=== PATIENT | female | born 1960 | race Caucasian/White ===

== ENCOUNTER 2017-04-23 18:27 | Inpatient (IN) ==
--- OUTSIDE RECORDS SUMMARY | 2017-04-23 18:37 | External Medical Summary | Referral Summary ---
:1960 Author Organization [facility] Address [address] [place] [address] [place] [address] Care Team Providers Name Role Phone Ashley Clinton Primary Care Physician Encounter VC Date(s): 08/11/16 - 08/11/16 [facility] [address] [place] [address] [place] [phone]- [place] Discharge Diagnosis: Tendinitis, de Quervain's Discharge Diagnosis: Rheumatoid arthritis, seronegative, multiple sites Discharge Diagnosis: Medication management Discharge Disposition: 01-Home or Self Care Attending Physician: Kezia Landin MD Admitting Physician: Kezia Landin MD Vital Signs Most recent to oldest [Reference Range]: 1 Peripheral Pulse Rate [60-100 bpm] 100 bpm (08/11/16 10:24 AM) Blood Pressure [90-140/60-90 mmHg] 89/64 mmHg *LOW* (08/11/16 10:24 AM) Problem List Condition Effective Dates Status Health Status Informant Basal cell carcinoma(Confirmed) Active Closed fracture of olecranon process Active of ulna (disorder)(Confirmed) Closed fracture of tibia Active (disorder)(Confirmed) Compression fracture of thoracic Active vertebra(Confirmed) Disorder of bone(Confirmed) Active process of ulna, closed(Confirmed) Active 2002(Confirmed) Active Osteochondropathy Active (disorder)(Confirmed) Osteopenia(Confirmed) Active Allergies, Adverse Reactions, Alerts Substance Reaction Severity Status sulfamethoxazole Unknown Active trimethoprim Unknown Active Medications Calcium 600+D Oral, 0 Refill(s) Start Date: 05/15/16 Status: Orderedhydroxychloroquine 200 mg oral tablet See Instructions, 2 tabs Mon to fri and 1 tab Sat and Sun, # 60 tabs, 3 Refill(s ), Pharmacy: [facility] #[id number], 2 tabs Mon to fri and 1 tab Sat and Sun Start Date: 08/11/16 Status: OrderedMiscellaneous DME DME Item Right thumb Spica splint/ Dx Tendonitis M65.4, See Instructions, # 1 Each, 0 Refill(s), Supply Start Date: 08/11/16 Status: Ordered Results No data available for this section Immunizations Given and Recorded Vaccine Date Status Refusal Reason tetanus/diphth/pertuss (Tdap) adult/adol 07/14/05 Recorded influenza virus vaccine, inactivated1 05/18/14 Recorded influenza virus vaccine, live 04/21/13 Given 1Result Comment: [05/18/2014] see scanned doc Procedures Procedure Date Related Diagnosis Body Site Carpal tunnel release1 1right 2016 Social History Social History Type Response Smoking Status Never smoker Assessment and Plan Extracted from: Title: Office Visit Note Author: Kezia Landin MD Date: 08/11/16 Assessment/Plan 1.Rheumatoid arthritis, seronegative, multiple sites She appears overall to be improved. We will continue the hydroxychloroquine. 2.Medication management She did have laboratory done a couple months ago with stable. She has seen her eye doctor. No toxicities noted. 3.Tendinitis, de Quervain's She was given a prescription forthumb splint. also recommended she try taking naproxen daily for week. Follow-up in 4 months or sooner if needed.
--- OUTSIDE RECORDS SUMMARY | 2017-04-23 18:37 | External Medical Summary | Referral Summary ---
:1960 Author Organization [facility] Address [address] [place] [address] Care Team Providers Name Role Phone Ashley Clinton Primary Care Physician Encounter VC Date(s): 05/15/16 - 05/15/16 [facility] [address] [place] [address]- [place] Discharge Diagnosis: Rheumatoid arthritis, seronegative, multiple sites Discharge Diagnosis: Medication management Discharge Disposition: 01-Home or Self Care Attending Physician: Kezia Landin MD Admitting Physician: Kezia Landin MD Referring Physician: Ashley Clinton DO Vital Signs Most recent to oldest [Reference Range]: 1 Peripheral Pulse Rate [60-100 bpm] 82 bpm (05/15/16 1:18 PM) Blood Pressure [90-140/60-90 mmHg] 102/74 mmHg (05/15/16 1:18 PM) Problem List Condition Effective Dates Status Health [...] tab Sat and Sun, # 60 tabs, 2 Refill(s ), Pharmacy: [facility] #[id number], 2 tabs Mon to fri and 1 tab Sat and Sun Start Date: 05/15/16 Status: Ordered Results No data available for this section Immunizations Vaccine Date Refusal Reason tetanus/diphth/pertuss (Tdap) adult/adol 07/14/05 influenza virus vaccine, inactivated1 05/18/14 influenza virus vaccine, live 04/21/13 1Result Comment: [05/18/2014] see scanned doc Procedures Procedure Date Related Diagnosis Body Site Carpal tunnel release1 1right 2016 Social History Social History Type Response Smoking Status Never smoker Assessment and Plan Extracted from: Title: Ambulatory Patient Education Author: Kezia Landin MD Date: 05/15/16 Labs Anticyclic-Citrullinated Peptide Antibody Test WHY AM I HAVING THIS TEST? The anticyclic-citrullinated peptide antibody test may be done to: Help your health care provider diagnose rheumatoid arthritis. Determine the severity and progression of your rheumatoid arthritis. This test may be done if you have unexplained joint inflammation and have previously tested negative for rheumatoid factor. It may also be done if you have been diagnosed with undifferentiated arthritis and your health care provider suspects rheumatoid arthritis. WHAT KIND OF SAMPLE IS TAKEN? A blood sample is required for this test. It is usually collected by inserting a needle into a vein. HOW DO I PREPARE FOR THE TEST? There is no preparation required for this test. HOW ARE THE TEST RESULTS REPORTED? Your test results will be reported as either positive or negative. It is your responsibility to obtain your test results. Ask the lab or department performing the test when and how you will get your results. WHAT DO THE RESULTS MEAN? A positive blood test may mean that you have rheumatoid arthritis. A negative blood test means that it is unlikely that you have rheumatoid arthritis. Talk with your health care provider to discuss your results, treatment options , and if necessary, the need for more tests. Talk with your health care provider if you have any questions about your results. This information is not intended to replace advice given to you by your health care provider. Make sure you discuss any questions you have with your health care provider. Document Released: 08/21/2005 Document Revised: 08/20/2015 Document Reviewed: 12/23/2014 Exit[employer] Patient Information 2016 [employer]. No follow up information was provided. Extracted from: Title: Office Visit Note Author: Kezia Landin MD Date: 05/15/16 Assessment/Plan 1.Rheumatoid arthritis, seronegative, multiple sites She has evidence of synovitis on examination and has particular osteopenia on x-ray. I discussed that presentation is compatible of rheumato id arthritis. Her rheumatoid factor was negative on her lab work. I will check a CCP antibody and also check her inflammatory markers and she was given a lasted to have this done. I will start her on hydroxychloroquine. I reviewed the potential risks which may occur with this medication including retinal toxicityand that she will need to see eye doctor on annual basis, muscle toxicity, cytop enias etc. She was given a handouton this medication from the [employer]. 2.Medication management I will check baseline blood counts. Follow-up in 2-3 months.
[2017-04-23] MEDS ORDERED: NS 1,000 ML IV ONE (18:43)
--- NOTE | 2017-04-23 18:48 | Emergency Department Report ---
Cardiac General HPI - General Stated Complaint: racing hb Time Seen by Provider: 04/23/17 18:28 Source: patient, family Mode of arrival: ambulatory Limitations: no limitations - History of Present Illness HPI narrative: Patient presents with symptoms of rapid pounding heartbeat that she's had since 2 PM. Patient denies any shortness of breath or chest pain, but states that she has had these symptoms on and off approximately every few months for several years now. With today's episode, this is lasted longer than usual, and patient also has mild paresthesia to the fingertips which is unusual. Currently the episode is improved significantly, patient has no dizziness or lightheadedness currently, does have a "slight" tingly feeling in the fingertips of the right hand only. Patient denies any recreational drug use, supplement use, naturopathic medications, and over the counters. Patient is taking one prescription medication as listed for her rheumatoid arthritis. Patient denies recreational drug use of any kind, and has an occasional glass of wine, less than one per week - Related Data Home Medications Medication Instructions Recorded Confirmed Calcium Carbonate 600 mg PO DAILY 04/23/17 04/23/17 Hydroxychloroquine Sulfate 200 mg PO BID 04/23/17 04/23/17 Allergies Allergy/AdvReac Type Severity Reaction Status Date / Time sulfamethoxazole Allergy Unknown hives Verified 04/23/17 19:00 trimethoprim Allergy Unknown hives Verified 04/23/17 19:00 Review of Systems All systems: reviewed and negative except as stated PFSH Osteoporosis Pneumonia Rheumatoid arthritis Physical Exam - Limitations Limitations: no limitations - General General appearance: alert, in no apparent distress - Normal Exams: Head:: Normocephalic without trauma Eyes:: Pupils are PERRLA w/ EOMI, No scleral icterus, irritation, or foreign bodies noted ENMT:: No facial trauma, nasal exudates, pharyngeal erythema, or exudates are noted Neck:: Full range of motion, without adenopathy, JVD, bruits or thyromegaly Chest/Respirations:: Clear all king, with good airflow, and symmetry bilaterally Abdomen:: Bowel sounds positive, soft, non-tender, non-distended, no hepatosplenomegaly, masses or bruits noted Lymphatic:: No lymphadenopathy, or lymphedema noted Musculoskeletal:: No tenderness, or deformity noted, good range of motion, all extremities Integumentary:: No rashes, hives, or bruising noted, hair and nails, without abnormality Neurological:: Patient is alert, and oriented, cranial nerves, motor/sensory/ cerebellar, exams w/o gross deficits, to observation Psychiatric:: Patient exhibits, appropriate attention, emotion and affect - Cardiovascular Cardiovascular exam: Present: normal rhythm, tachycardia (sinus tachycardia), normal heart sounds. Absent: regular rate, bradycardia, systolic murmur, diastolic murmur, rubs, gallop, clicks Course Vital Signs Temperature 97.7 F 04/23/17 18:32 Pulse Rate 125 H 04/23/17 18:32 Respiratory Rate 16 04/23/17 18:32 Blood Pressure 119/67 04/23/17 18:32 Pulse Oximetry 100 04/23/17 18:32 Temperature 97.7 F 04/23/17 18:32 Pulse Rate 125 H 04/23/17 18:32 Respiratory Rate 16 04/23/17 18:32 Blood Pressure 119/67 04/23/17 18:32 Pulse Oximetry 100 04/23/17 18:32 Cardiac General - MDM Narrative Medical decision making narrative: EKG shows sinus tachycardia without ischemia, patient does have one PVC noted. No STEMI Patient given 1 L normal saline IV fluid bolus - CBC - n CMP - n Troponin - elevated 0.447 Patient has 1 inch Nitropaste placed on the chest, Dr. Vivar paged at 7:25 PM Case discussed with Dr. Vivar - will give Lovenox 1 mg/kg in the ER, continue Nitropaste in ICU, and will admit to ICU for non-STEMI. UA - TSH - - Lab Data Result diagrams: 04/23/17 18:50 04/23/17 18:50 Lab Results 04/23/17 04/23/17 Range/Units 18:50 18:50 WBC 6.9 (4.5-11.0) T/MM3 RBC 4.98 (4.00-5.20) M/MM3 Hgb 14.9 (12-16) GM/DL Hct 43.3 (36-46) % MCV 86.9 (80-100) UM3 MCH 29.9 (26-34) UUG MCHC 34.4 (31-37) GM/DL RDW Std Deviation 38.5 (36.9-50.2) FL Plt Count 220 (130-400) T/MM3 MPV 9.4 (9.4-12.4) UM3 Immature Gran % (Auto) 0.1 (0.0-0.5) % Neut % (Auto) 64.3 (33-66) % Lymph % (Auto) 24.2 (23-45) % Cannon % (Auto) 8.5 (0-9.0) % Eos % (Auto) 2.3 (0-4) % Baso % (Auto) 0.6 (0-2) % Neut # 4.4 (1.8-7.7) T/MM3 Lymph # 1.7 (1-4.8) T/MM3 Cannon # 0.6 (0-0.8) T/MM3 Eos # 0.2 (0-0.5) T/MM3 Baso # 0.0 (0-0.2) T/MM3 Abs Immat Gran (auto) 0.01 (0.00-0.03) T/MM3 Turbidity < 20 (0-20) Sodium 142 (134-144) MEQ/L Potassium 3.5 L (3.6-5) MEQ/L Chloride 105 (98-107) MEQ/L Carbon Dioxide 26 (22-30) MEQ/L Anion Gap 11 (5-15) MEQ/L BUN 14.0 (7-17) MG/DL Creatinine 0.9 (0.7-1.2) MG/DL GFR Calculation 65 BUN/Creatinine Ratio 16 (6-26) RATIO Glucose 101 (65-110) MG/DL Calculated Osmolality 274 (261-280) MOSM/KG Calcium 10.0 (8.4-10.2) MG/DL Total Bilirubin 0.60 (0.20-1.30) MG/DL Conjugated Bilirubin 0.00 (0.00-0.30) MG/DL Unconjugated Bilirubin 0.20 (0.00-11.10) MG/DL Icterus Index < 2 (0-7) AST 26 (14-36) U/L ALT 34 (9-52) U/L Alkaline Phosphatase 93 (38-126) U/L Troponin I 0.447 H (0-0.12) ng/ml Total Protein 7.7 (6.3-8.2) G/DL Albumin 4.8 (3.5-5.0) G/DL Globulin 2.9 (2.4-3.6) G/DL Albumin/Globulin Ratio 1.7 (1.1-2.2) RATIO Specimen Hemolysis < 15 (0-25) Critical Care Time Total Critical Care Time: 35 Attestation: Patient required aggressive and advanced diagnostics and intervention for acute coronary syndrome, non-STEMI Disposition Clinical Impression: Non-STEMI (non-ST elevated myocardial infarction) Disposition: 02 To [facility] Condition: Improved Prescriptions: No Action Calcium Carbonate 600 mg PO DAILY Hydroxychloroquine Sulfate 200 mg PO BID Referrals: Ashley Clinton DO [Family Provider] - - Seen By: physician
[2017-04-23] MEDS ORDERED: NITROGLYCERIN 2% OINTMENT 1gm PACKET TP ONE (19:26)
[2017-04-23] MEDS ORDERED: ENOXAPARIN 60 MG/0.6 ML INJECTION SQ ONE (19:30)
[2017-04-23 21:02] VITALS: BMI 23.2
[2017-04-23] MEDS: HYDROXYCHLOROQUINE 200 MG TABLET PO SCH (21:55)
[2017-04-23] MEDS ORDERED: NITROGLYCERIN 0.4 MG SUBLINGUAL TABLET SL PRN (22:39)
--- NOTE | 2017-04-23 22:56 | Cardiology History & Physical ---
History of Present Illness Chief complaint: Palpitations first seen by Dr. Vivar on 04/24/2017 HPI: This is a 56 year old patient with a history of palpitations and rheumatoid arthritis. This afternoon about 2:00 she was at the bank, under no stress, and she started to feel a rapid heart beat. She went home and laid down and her HR decreased. when she got up again her HR increased. She has had palpitations in the past occurring every 6 months to 1 yr lasting for 1 -2 minutes, 10 minutes at the most for the last 10 yrs or so. Therefore she expected her HR to return to normal. She denies chest pain/pressure/tightness. She has been eating and drinking ok. She does drink one coffee and one diet coke a day. No extra caffeinated drinks or cold meds. No N/V or abdominal pain, No sickness or fever or chills. When the palpations did not go away, Her brought her into [facility] ER about 6:30 pm. She had some SOB, dizziness, and epigastric discomfort like reflux and her fingers on both hands started to tingle. She does not smoke, use drugs, and may drink a glass of wine once a week. By the time she got to the ER her HR decreased and her symptoms had improved significantly. In ER ECG: ST, HR 122, 1 PVC. Trop 0.44. CBC and CMP unremarkable. TSH wnl. She received lovenox 1mg/kg. Dr. Vivar was contacted and agreed with admit. Review of Systems - Constitutional Constitutional: Absent: chills, fever(s), malaise, weight gain, weight loss - EETXT Eyes: Absent: blurry vision Mouth/Throat: Absent: sore throat - Cardiovascular Cardiovascular: Present: palpitations. Absent: chest pain, dyspnea on exertion , orthopnea, edema Rhythm: Present: regular rhythm Vascular: Absent: pedal edema - Respiratory Respiratory: Present: dyspnea. Absent: cough - Gastrointestinal Gastrointestinal: Present: other (had some epigastric pain like reflux. ). Absent: abdominal pain, constipation, diarrhea, nausea, vomiting - Genitourinary Genitourinary: Absent: flank pain - Musculoskeletal Musculoskeletal: Present: other (no joint pain since she has been taking the arthritis medicine. ) - Integumentary/Breasts Integumentary: Absent: rash - Neurological Neurological: Present: dizziness, paresthesias (of fingers christiano ) - Psychiatric Psychiatric: Absent: anxiety, depression, panic attacks - Endocrine Endocrine: Absent: cold intolerance - Hematologic/Lymphatic Hematologic/Lymphatic: Absent: easy bruising [facility] Patient Stated Medical History Cardiac Arrhythmia Yes Other Musculoskeletal Yes: rheumatoid arthritis Surgical History: carpal tunnel release. Family History: Father in [place] A/W at 91 yrs. She had kidney cancer in past and has one kidney. 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 Current residence: Independent Living Social history: . Lives at home in [place], [place] and does her own chores. Walks almost daily. Medications Home Medications Medication Instructions Recorded Confirmed Type Calcium Carbonate 600 mg PO DAILY 04/23/17 04/23/17 History Hydroxychloroquine Sulfate 200 mg PO BID 04/23/17 04/23/17 History Allergies Allergy/AdvReac Type Severity Reaction Status Date / Time sulfamethoxazole Allergy Unknown hives Verified 04/23/17 19:00 trimethoprim Allergy Unknown hives Verified 04/23/17 19:00 Exam Vital signs: Temperature 98.2 F 04/23/17 20:00 Pulse Rate 104 H 04/23/17 20:00 Respiratory Rate 20 04/23/17 20:00 Blood Pressure 124/70 04/23/17 20:00 Pulse Oximetry 100 04/23/17 20:00 - Constitutional no acute distress, well nourished, well developed, cooperative Comments: Looks healthy. - Routine HEENT Exam Head: Present: normocephalic, atraumatic Eye: Present: normal accommodation, conjunctivae pink ENT: Present: mucous membranes moist, dentition normal - Routine Neck Exam Absent: JVD, carotid bruit - Routine Respiratory Exam Present: CTA bilaterally. Absent: respiratory distress - Routine Cardiovascular Exam Present: RRR, no murmur, tachycardia. Absent: JVD - Routine Abdominal Exam Present: soft, normoactive bowel sounds, non tender - Routine Extremities Exam Present: no edema, non tender, pulses intact, normal capillary refill - Routine Back/Spine/Pelvis Exam Back/Spine: Present: full ROM - Routine Skin Exam Present: intact, dry, warm, normal turgor - Routine Neurological Exam Present: alert, oriented X3, moving all extremities, vision grossly intact, hearing grossly intact, normal speech - Routine Psychiatric Exam Present: normal affect, normal thought process, cooperative, good insight, good judgment Results 04/23/17 18:50 04/24/17 07:03 Intake and Output 04/23/17 04/23/17 04/23/17 06:59 14:59 22:59 Intake Total 1000 / 1000 Balance 1000 / 1000 Intake: IV 1000 / 1000 Normal Saline 1,000 ml @ 1000 / 1000 999.9 mls/hr IV .Q1H ONE Rx#:[id number] Other: Weight 127 lb 3.307 oz Patient Weight 04/24/17 06:59 Weight 127 lb 3.307 oz Laboratory Results - last 24 hr 04/23/17 04/23/17 04/23/17 18:50 18:50 20:03 WBC 6.9 RBC 4.98 Hgb 14.9 Hct 43.3 MCV 86.9 MCH 29.9 MCHC 34.4 RDW Std Deviation 38.5 Plt Count 220 MPV 9.4 Immature Gran % (Auto) 0.1 Neut % (Auto) 64.3 Lymph % (Auto) 24.2 [place] % (Auto) 8.5 Eos % (Auto) 2.3 Baso % (Auto) 0.6 Neut # 4.4 Lymph # 1.7 [place] # 0.6 Eos # 0.2 Baso # 0.0 Abs Immat Gran (auto) 0.01 Turbidity < 20 Sodium 142 Potassium 3.5 L Chloride 105 Carbon Dioxide 26 Anion Gap 11 BUN 14.0 Creatinine 0.9 GFR Calculation 65 BUN/Creatinine Ratio 16 Glucose 101 Calculated Osmolality 274 Calcium 10.0 Total Bilirubin 0.60 Conjugated Bilirubin 0.00 Unconjugated Bilirubin 0.20 Icterus Index < 2 AST 26 ALT 34 Alkaline Phosphatase 93 Troponin I 0.447 H Total Protein 7.7 Albumin 4.8 Globulin 2.9 Albumin/Globulin Ratio 1.7 TSH 2.16 Specimen Hemolysis < 15 Ur Collection Type Urine, clean catch Urine Color Yellow Urine Clarity Clear Urine pH 7.0 Ur Specific Barnard 1.010 L Urine Protein Negative Urine Glucose (UA) Negative Urine Ketones Negative Urine Occult Blood Trace-intact Urine Nitrate Negative Urine Bilirubin Negative Urine Urobilinogen 0.2 Ur Leukocyte Esterase 1+ A Urine RBC None seen Urine WBC 0-1 Ur Squamous Epith Cells 0-5 Urine Bacteria None seen Ur Culture Indicated? Cult not indicated - Imaging and Cardiology Echo: pending EKG results: report reviewed Imaging & Cardiology Narrative: 04/23/2017 at 1842: ST, HE 122, 1 PVC 04/23/2017 at 2344: ST, HR 100, no ST changes. - EKG Interpretation EKG: sinus rhythm EKG shows: tachycardia Hospital Course This is a general summary of the patient's hospital course. For more details refer to the complete medical record. Time spent with patient: 25 - 35 minutes DVT Prophylaxis: Lovenox Assessment and Plan (1) Non-STEMI (non-ST elevated myocardial infarction) Current visit: Yes Status: Acute Likely due to tachycardia. Trend trop: if next trop decrease or are negative, then plan outpt stress test If trop increases, then plan heart cath in am. - will make NPO after midnoc. - Received lovenox 1mg/kg x1 - start ASA 81 mg daily. - check lipid profile in am. - no BB with BP 90's to 100 and HR coming down on its own. (2) Sinus tachycardia Current visit: Yes Status: Acute Monitor with telemetry. - HR has come down to 80 to 100's now. - She feels her HR was much faster earlier in the day. possibly SVT? - In ER ECG: ST HR 122. - no BB or CCB with BP 90 - 100's. - Plan Holter monitor in int future as an outpt. (3) Rheumatoid arthritis Current visit: Yes Status: Acute - No pain or sdiscomfort since her Manager [employer] started med. - Cont home med. - Attestation Attestation Narrative: 04/24/17 11:04 Recommendation After examining the patient I agree with the above assessment. I am involved in the formulation of the patient's plan of care. Sepsis Assessment - Evaluation Sepsis screening result: No Definite Risk
[2017-04-23] MEDS ORDERED: ACETAMINOPHEN 500 MG TABLET PO PRN (23:57)
[2017-04-23] MEDS ORDERED: ONDANSETRON 4 MG/2 ML INJECTION IV PRN (23:58)
[2017-04-23] MEDS ORDERED: DiphenhydrAMINE 25 MG CAPSULE PO PRN (23:58)
[2017-04-24] MEDS: NS 1,000 ML IV SCH ×2 (08:40→20:12)
[2017-04-24] MEDS: ASPIRIN 81 MG CHEWABLE TABLET PO SCH (08:48)
[2017-04-24] MEDS: HYDROXYCHLOROQUINE 200 MG TABLET PO SCH ×2 (08:48→17:40)
--- NOTE | 2017-04-24 08:56 | XRay Report ---
Indication: elevated troponin PROCEDURE: XR chest 1V: Encounter: Initial Comparison: None FINDINGS: Calcified granuloma in the left lower lobe. The lungs are otherwise clear. There is no abnormal airspace opacity, pleural effusion or pneumothorax identified. The heart size, pulmonary vasculature and mediastinum are within normal limits. No significant skeletal abnormality is seen. IMPRESSION: No acute cardiopulmonary abnormality. .
[2017-04-24] MEDS: LISINOPRIL 2.5 MG TABLET PO SCH (09:06)
--- NOTE | 2017-04-24 15:54 | Echocardiogram ---
DATE OF PROCEDURE April 24, 2017 This is a two-dimensional echo with spectral Doppler, color-flow and M-mode. It was obtained in a patient with non-STEMI. Left atrial dimension is normal. Left ventricle end-diastolic dimension is normal. Left ventricle wall thickness is normal. LV systolic function is normal with ejection fraction of 72%. Right atrium is normal. Right ventricle is normal. Aortic root dimension is normal. Mitral, aortic, tricuspid, and pulmonary valves are morphologically normal with trace of tricuspid regurgitation with normal estimated pulmonary artery systolic pressure of 25. There is no pericardial effusion. IMPRESSION 1. Essentially normal echo with trivial tricuspid regurgitation. MTDD
[2017-04-24] MEDS ORDERED: HEPARIN 1,000 UNITS/500 ML PREMIX (*CVL ONLY*) IV ONE (16:05)
[2017-04-24] MEDS ORDERED: LIDOCAINE 1% (10mg/ml) 30ml SDV INJ ONE (16:05)
[2017-04-24] MEDS ORDERED: ASPIRIN 325 MG TABLET ONE (16:09)
[2017-04-24] MEDS ORDERED: FentaNYL 100 MCG/2 ML INJECTION ONE (16:10)
[2017-04-24] MEDS ORDERED: HEPARIN 1,000unit/ml INJECTION 10ml ONE (16:11)
[2017-04-24] MEDS ORDERED: Verapamil 5 MG/2 ML VIAL ONE (16:11)
[2017-04-24] MEDS ORDERED: MIDAZOLAM 2mg/2ml INJECTION ONE (16:11)
[2017-04-24] MEDS ORDERED: NITROGLYCERIN 50MG INJECTION IV ONE (16:12)
[2017-04-24] MEDS ORDERED: NS 1,000 ML ONE (16:47)
[2017-04-24] MEDS ORDERED: PHENYLEPHRINE INJ 10 MG/ML VIAL IV ONE (16:51)
[2017-04-24] MEDS ORDERED: LORazepam 0.5 MG TABLET PO PRN (17:11)
[2017-04-24] MEDS ORDERED: NITROGLYCERIN 0.4 MG SUBLINGUAL TABLET SL PRN (17:11)
[2017-04-24] MEDS ORDERED: HYDROCODONE/APAP 5mg/325mg TABLET PO PRN (17:11)
[2017-04-24] MEDS ORDERED: MORPHINE SULFATE 4 MG SYRINGE IVP PRN ×2 (17:11)
[2017-04-24] MEDS ORDERED: BISACODYL 10 MG SUPPOSITORY RECTALLY PRN (17:11)
[2017-04-24] MEDS ORDERED: MAG-AL + SIM ORAL LIQUID 30ml PO PRN (17:11)
[2017-04-24] MEDS ORDERED: Bisacodyl EC TAB 5 MG TABLET PO PRN (17:11)
[2017-04-24] MEDS ORDERED: METOCLOPRAMIDE 10mg/2ml INJECTION IVP PRN (17:11)
[2017-04-24] MEDS ORDERED: PROMETHAZINE 25 MG INJECTION IVP PRN (17:11)
[2017-04-24] MEDS ORDERED: ATROPINE 1 MG/ML INJECTION IVP PRN (17:11)
[2017-04-24] MEDS ORDERED: ACETAMINOPHEN 325 MG TABLET PO PRN (17:11)
[2017-04-24] MEDS ORDERED: ONDANSETRON 4 MG/2 ML INJECTION IVP PRN (17:11)
[2017-04-25] MEDS: NS 1,000 ML IV SCH ×2 (01:09→06:17)
[2017-04-25] MEDS: SALINE FLUSH 10ml SYRINGE IVF PRN ×2 (01:11→06:43)
[2017-04-25 03:22] VITALS: RESP 14; TEMP 98.3
[2017-04-25 07:25] VITALS: BP 102/56; O2SAT 99
[2017-04-25 07:50] VITALS: PULSE 81
[2017-04-25] MEDS: ASPIRIN 81 MG CHEWABLE TABLET PO SCH (08:53)
[2017-04-25] MEDS: HYDROXYCHLOROQUINE 200 MG TABLET PO SCH (08:53)
[2017-04-25] MEDS: LISINOPRIL 2.5 MG TABLET PO SCH (08:53)
--- NOTE | 2017-04-25 08:55 | Cardiac Catheterization Report ---
DATE OF PROCEDURE April 24, 2017 The patient is a 56-year lady who was admitted with non-STEMI and was referred for further evaluation by cardiac catheterization and possible intervention. Informed consent was obtained after explaining the procedure and the potential risks to the patient who agreed to proceed with the procedure. PROCEDURE 1. Left heart catheterization. 2. Coronary angiography. 3. Left ventriculography. TECHNIQUE She was prepped and draped in the usual sterile techniques. Conscious sedation was performed using Versed and fentanyl. 1% lidocaine was used for local anesthesia. Using modified Seldinger technique, arterial access was obtained into the right radial artery with placement of a 6-Angolan arterial sheath. 3000 units of heparin, 300 mcg of nitroglycerin and 2.5 mg of verapamil were given through the arterial sheath. LEFT VENTRICULOGRAPHY Left ventriculography in single-plane CHATMAN shallow projection showed normal LV systolic function with ejection fraction of 65% with no mitral regurgitation or gradient across the aortic valve. LVEDP was about 8. CORONARY ANGIOGRAPHY Left main, left anterior descending and diagonals, left circumflex and marginals , and right coronary artery were all free of significant lesions with left dominant system. The patient tolerated the procedure well with no complications. IMPRESSION 1. Normal LV systolic function with ejection fraction of 65%. 2. No significant coronary obstructive disease. PLAN Medical management. IFEOMA
[2017-04-25] MEDS ORDERED: ENOXAPARIN 40 MG/0.4 ML INJECTION SQ SCH (09:00)
[2017-04-25] MEDS ORDERED: ASPIRIN *EC* 81 MG TABLET PO SCH (09:00)
--- NOTE | 2017-04-25 10:16 | Discharge Summary ---
<Dara Moran - Last Filed: 04/25/17 10:47> Discharge Information Date of admission: 04/24/17 14:54 Anticipated date of discharge: 04/25/17 Attending Physician: Jude Vivar MD Primary care physician: Ashley Clinton, DO - Discharge Diagnosis (1) Non-STEMI (non-ST elevated myocardial infarction) Status: Acute (2) Sinus tachycardia Status: Acute (3) Rheumatoid arthritis Status: Acute - Procedures Procedures: Date of Exam: 04/24/17 Type of Exam(s): CA heart cath LT DATE OF PROCEDURE April 24, 2017 The patient is a 56-year lady who was admitted with non-STEMI and was referred for further evaluation by cardiac catheterization and possible intervention. Informed consent was obtained after explaining the procedure and the potential risks to the patient who agreed to proceed with the procedure. PROCEDURE 1. Left heart catheterization. 2. Coronary angiography. 3. Left ventriculography. TECHNIQUE She was prepped and draped in the usual sterile techniques. Conscious sedation was performed using Versed and fentanyl. 1% lidocaine was used for local anesthesia. Using modified Seldinger technique, arterial access was obtained into the right radial artery with placement of a 6-[place] arterial sheath. 3000 units of heparin, 300 mcg of nitroglycerin and 2.5 mg of verapamil were given through the arterial sheath. LEFT VENTRICULOGRAPHY Left ventriculography in single-plane CHATMAN shallow projection showed normal LV systolic function with ejection fraction of 65% with no mitral regurgitation or gradient across the aortic valve. LVEDP was about 8. CORONARY ANGIOGRAPHY Left main, left anterior descending and diagonals, left circumflex and marginals , and right coronary artery were all free of significant lesions with left dominant system. The patient tolerated the procedure well with no complications. IMPRESSION 1. Normal LV systolic function with ejection fraction of 65%. 2. No significant coronary obstructive disease. PLAN Medical management. - Laboratory Labs: 04/25/17 04:50 04/25/17 04:50 Laboratory Results - last 48 hr 04/23/17 04/23/17 04/23/17 18:50 18:50 20:03 WBC 6.9 RBC 4.98 Hgb 14.9 Hct 43.3 MCV 86.9 MCH 29.9 MCHC 34.4 RDW Std Deviation 38.5 Plt Count 220 MPV 9.4 Immature Gran % (Auto) 0.1 Neut % (Auto) 64.3 Lymph % (Auto) 24.2 [place] % (Auto) 8.5 Eos % (Auto) 2.3 Baso % (Auto) 0.6 Neut # 4.4 Lymph # 1.7 [place] # 0.6 Eos # 0.2 Baso # 0.0 Abs Immat Gran (auto) 0.01 Turbidity < 20 Sodium 142 Potassium 3.5 L Chloride 105 Carbon Dioxide 26 Anion Gap 11 BUN 14.0 Creatinine 0.9 GFR Calculation 65 BUN/Creatinine Ratio 16 Glucose 101 Calculated Osmolality 274 Calcium 10.0 Magnesium Total Bilirubin 0.60 Conjugated Bilirubin 0.00 Unconjugated Bilirubin 0.20 Icterus Index < 2 AST 26 ALT 34 Alkaline Phosphatase 93 Troponin I 0.447 H Total Protein 7.7 Albumin 4.8 Globulin 2.9 Albumin/Globulin Ratio 1.7 TSH 2.16 Specimen Hemolysis < 15 Ur Collection Type Urine, clean catch Urine Color Yellow Urine Clarity Clear Urine pH 7.0 Ur Specific [place] 1.010 L Urine Protein Negative Urine Glucose (UA) Negative Urine Ketones Negative Urine Occult Blood Trace-intact Urine Nitrate Negative Urine Bilirubin Negative Urine Urobilinogen 0.2 Ur Leukocyte Esterase 1+ A Urine RBC None seen Urine WBC 0-1 Ur Squamous Epith Cells 0-5 Urine Bacteria None seen Ur Culture Indicated? Cult not indicated 04/24/17 04/24/17 04/24/17 01:00 07:03 07:03 WBC RBC Hgb Hct MCV MCH MCHC RDW Std Deviation Plt Count MPV Immature Gran % (Auto) Neut % (Auto) Lymph % (Auto) [place] % (Auto) Eos % (Auto) Baso % (Auto) Neut # Lymph # [place] # Eos # Baso # Abs Immat Gran (auto) Turbidity < 20 Sodium 143 Potassium 4.1 Chloride 111 H Carbon Dioxide 26 Anion Gap 6 BUN 12.0 Creatinine 0.8 GFR Calculation 75 BUN/Creatinine Ratio 15 Glucose 89 Calculated Osmolality 274 Calcium 9.0 D Magnesium 2.3 Total Bilirubin Conjugated Bilirubin Unconjugated Bilirubin Icterus Index < 2 AST ALT Alkaline Phosphatase Troponin I 1.370 H D 0.799 H Total Protein Albumin Globulin Albumin/Globulin Ratio TSH Specimen Hemolysis < 15 < 15 < 15 Ur Collection Type Urine Color Urine Clarity Urine pH Ur Specific [place] Urine Protein Urine Glucose (UA) Urine Ketones Urine Occult Blood Urine Nitrate Urine Bilirubin Urine Urobilinogen Ur Leukocyte Esterase Urine RBC Urine WBC Ur Squamous Epith Cells Urine Bacteria Ur Culture Indicated? 04/25/17 04/25/17 04/25/17 04:50 04:50 04:50 WBC 4.3 L RBC 4.14 Hgb 12.3 D Hct 37.2 D MCV 89.9 MCH 29.7 MCHC 33.1 RDW Std Deviation 39.4 Plt Count 180 MPV 9.9 Immature Gran % (Auto) 0.0 Neut % (Auto) 47.2 Lymph % (Auto) 35.8 [place] % (Auto) 9.8 H Eos % (Auto) 6.5 H Baso % (Auto) 0.7 Neut # 2.0 Lymph # 1.5 [place] # 0.4 Eos # 0.3 Baso # 0.0 Abs Immat Gran (auto) 0.00 Turbidity < 20 Sodium 142 Potassium 4.1 Chloride 111 H Carbon Dioxide 25 Anion Gap 6 BUN 12.0 Creatinine 0.8 GFR Calculation 75 BUN/Creatinine Ratio 15 Glucose 86 Calculated Osmolality 272 Calcium 8.7 Magnesium Total Bilirubin Conjugated Bilirubin Unconjugated Bilirubin Icterus Index < 2 AST ALT Alkaline Phosphatase Troponin I 0.245 H D Total Protein Albumin Globulin Albumin/Globulin Ratio TSH Specimen Hemolysis < 15 < 15 Ur Collection Type Urine Color Urine Clarity Urine pH Ur Specific [place] Urine Protein Urine Glucose (UA) Urine Ketones Urine Occult Blood Urine Nitrate Urine Bilirubin Urine Urobilinogen Ur Leukocyte Esterase Urine RBC Urine WBC Ur Squamous Epith Cells Urine Bacteria Ur Culture Indicated? - Radiology Radiology: Date of Exam: 04/24/17 Type of Exam(s): US echo doppler complete DATE OF PROCEDURE April 24, 2017 This is a two-dimensional echo with spectral Doppler, color-flow and M-mode. It was obtained in a patient with non-STEMI. Left atrial dimension is normal. Left ventricle end-diastolic dimension is normal. Left ventricle wall thickness is normal. LV systolic function is normal with ejection fraction of 72%. Right atrium is normal. Right ventricle is normal. Aortic root dimension is normal. Mitral, aortic, tricuspid, and pulmonary valves are morphologically normal with trace of tricuspid regurgitation with normal estimated pulmonary artery systolic pressure of 25. There is no pericardial effusion. IMPRESSION 1. Essentially normal echo with trivial tricuspid regurgitation. Date of Exam: 04/24/17 Ordering Provider: Dara Moran APRN Type of Exam(s): XR chest 1V Reason for Exam(s): elevated troponin Indication: elevated troponin PROCEDURE: XR chest 1V: Encounter: Initial Comparison: None FINDINGS: Calcified granuloma in the left lower lobe. The lungs are otherwise clear. There is no abnormal airspace opacity, pleural effusion or pneumothorax identified. The heart size, pulmonary vasculature and mediastinum are within normal limits. No significant skeletal abnormality is seen. IMPRESSION: No acute cardiopulmonary abnormality. History of Present Illness HPI: This is a 56 year old patient with a history of palpitations and rheumatoid arthritis. This afternoon about 2:00 she was at the bank, under no stress, and she started to feel a rapid heart beat. She went home and laid down and her HR decreased. when she got up again her HR increased. She has had palpitations in the past occurring every 6 months to 1 yr lasting for 1 -2 minutes, 10 minutes at the most for the last 10 yrs or so. Therefore she expected her HR to return to normal. She denies chest pain/pressure/tightness. She has been eating and drinking ok. She does drink one coffee and one diet coke a day. No extra caffeinated drinks or cold meds. No N/V or abdominal pain, No sickness or fever or chills. When the palpations did not go away, Her brought her into [facility] ER about 6:30 pm. She had some SOB, dizziness, and epigastric discomfort like reflux and her fingers on both hands started to tingle. She does not smoke, use drugs, and may drink a glass of wine once a week. By the time she got to the ER her HR decreased and her symptoms had improved significantly. In ER ECG: ST, HR 122, 1 PVC. Trop 0.44. CBC and CMP unremarkable. TSH wnl. She received lovenox 1mg/kg. Dr. Vivar was contacted and agreed with admit. Hospital Course This is a general summary of the patient's hospital course. For more details refer to the complete medical record. Hospital course: Deyanira underwent transradial left heart catheterization without intervention. Coronary arteries are free of significant lesions. Will conitnue BB, JOEY and Aspirin. Follow up outpatient for 30 day heart monitor to help identify patient' s arrhythmia. Exam Vital signs: Temperature 98.3 F 04/25/17 07:22 Pulse Rate 81 04/25/17 07:48 Respiratory Rate 14 04/25/17 07:22 Blood Pressure 102/56 04/25/17 07:22 Pulse Oximetry 99 04/25/17 07:22 - Constitutional no acute distress, well nourished, thin, cooperative - Routine HEENT Exam Head: Present: normocephalic ENT: Present: mucous membranes moist - Routine Neck Exam Absent: JVD, carotid bruit - Routine Chest/Breast/Axilla Exam Chest wall: Absent: tenderness - Routine Respiratory Exam Present: CTA bilaterally. Absent: rales, wheezes - Routine Cardiovascular Exam Present: RRR, no murmur. Absent: JVD - Routine Abdominal Exam Present: soft, normoactive bowel sounds - Routine Extremities Exam Present: no edema - Routine Skin Exam Present: intact, dry, warm - Routine Neurological Exam Present: alert, oriented X3 - Routine Psychiatric Exam Present: normal affect, normal thought process Results 04/25/17 04:50 04/25/17 04:50 Cardiac Enzymes 04/25/17 Range/Units 04:50 Troponin I 0.245 H D (0-0.12) ng/ml CBC 04/25/17 Range/Units 04:50 WBC 4.3 L (4.5-11.0) T/MM3 RBC 4.14 (4.00-5.20) M/MM3 Hgb 12.3 D (12-16) GM/DL Hct 37.2 D (36-46) % Plt Count 180 (130-400) T/MM3 Neut # 2.0 (1.8-7.7) T/MM3 Lymph # 1.5 (1-4.8) T/MM3 [place] # 0.4 (0-0.8) T/MM3 Eos # 0.3 (0-0.5) T/MM3 Baso # 0.0 (0-0.2) T/MM3 Comprehensive Metabolic Panel 04/25/17 Range/Units 04:50 Sodium 142 (134-144) MEQ/L Potassium 4.1 (3.6-5) MEQ/L Chloride 111 H (98-107) MEQ/L Carbon Dioxide 25 (22-30) MEQ/L BUN 12.0 (7-17) MG/DL Creatinine 0.8 (0.7-1.2) MG/DL Glucose 86 (65-110) MG/DL Calcium 8.7 (8.4-10.2) MG/DL Intake and Output 04/24/17 04/25/17 04/25/17 22:59 06:59 14:59 Intake Total 706.667 / 706.667 763.333 / 763.333 465 / 465 Output Total 800 / 800 Balance 706.667 / 706.667 -36.667 / -36.667 465 / 465 Intake: IV 466.667 / 466.667 513.333 / 513.333 275 / 275 Normal Saline 1,000 ml @ 466.667 / 466.667 513.333 / 513.333 275 / 275 100 mls/hr IV .Q10H AMANDA Rx#:[id number] Oral 240 / 240 250 / 250 190 / 190 Output: Urine 800 / 800 Other: Urine Appearance Clear Urine Color Straw Urine Odor Normal # Voids 1 Weight 124 lb 8.979 oz Patient Weight 04/26/17 06:59 Weight 124 lb 8.979 oz - Imaging and Cardiology Echo: report reviewed Cardiac cath: report reviewed EKG results: image reviewed - EKG Interpretation EKG: sinus rhythm Discharge Plan - Med Rec/Dispo Referrals/Follow Up: Jude Vivar MD [Physician] - 05/10/17 2:00 pm [place] Instructions: [facility] Heart Cath Trans Rad Additional Instructions: Take and record your blood pressure 2-3 times a week and bring list to follow up appointment. Bring your medications in the bottle, insurance card and photo ID. Prescriptions: New Aspirin *EC* [Ecotrin] 81 mg PO DAILY #30 tab Metoprolol Tartrate [Lopressor] 12.5 mg PO WB #30 tab Lisinopril [Prinivil] 2.5 mg PO DAILY #30 tab Continue Calcium Carbonate 600 mg PO DAILY Hydroxychloroquine Sulfate 200 mg PO BID No Action Triderm (Triamcinolone acetonide 0.1 %) topical cream 1 applicatio TOP BID 7 Days #30 g - Disposition 01 Discharged Home, Self-Care <Jude Vivar - Last Filed: 05/01/17 08:38> Discharge Information Date of admission: 04/24/17 14:54 Attending Physician: Jude Vivar MD Primary care physician: Ashley Clinton, DO - Discharge Diagnosis (1) Non-STEMI (non-ST elevated myocardial infarction) Status: Acute (2) Sinus tachycardia Status: Acute (3) Rheumatoid arthritis Status: Acute - Laboratory Labs: 04/25/17 04:50 04/25/17 04:50 Hospital Course This is a general summary of the patient's hospital course. For more details refer to the complete medical record. Exam Vital signs: Temperature 98.3 F 04/25/17 07:22 Pulse Rate 81 04/25/17 07:48 Respiratory Rate 14 04/25/17 07:22 Blood Pressure 102/56 04/25/17 07:22 Pulse Oximetry 99 04/25/17 07:22 Results 04/25/17 04:50 04/25/17 04:50 Discharge Plan - Med Rec/Dispo - Attestation Attestation Narrative: 05/01/17 08:38 Recommendation After examining the patient I agree with the above assessment. I am involved in the formulation of the patient's plan of care.
== END 2017-04-25 11:36 | disposition home or self-care (01) | DRG 282 ==
LOC: CCU 18:27 → ED 18:27 → CCU 20:20 → SRG 04-24 16:58
PROVIDERS: ADMIT Internal Medicine Cardiovascular Disease; ATTEND Internal Medicine Cardiovascular Disease